=== PATIENT | female | born 1965 | race Two or more races ===

== ENCOUNTER 2021-10-27 19:30 | Observation (INO) | payer OTHER ==
[~2021-10-27] VITALS: Ht 162.6 cm; Wt 80.7 kg
--- NOTE | 2021-10-27 19:45 | NUR ---
[id number]. PALPITATION - RAPID AFIB NOTED NEW ONSET. PATIENT ALERT AND ORIENTED X3. AMBULATORY WTIH NON LABORED BREATHING IN BED 06 ON MONITOR AND POX AWAITING MD MCCOY.
--- NOTE | 2021-10-27 19:48 | NUR ---
covid swab done and sent to lab
--- NOTE | 2021-10-27 19:48 | NUR ---
blood collected and sent to lab
[2021-10-27] MEDS ORDERED: ASPIRIN 325 MG TABLET ONE (19:50)
[2021-10-27] MEDS ORDERED: DILTIAZEM HCL 25 MG IV ONE ×2 (19:51→21:35)
[2021-10-27] MEDS ORDERED: DILTIAZEM HCL 25 MG IV IV ONE (20:00)
[2021-10-27] MEDS ORDERED: IV NS 0.9% 1,000 ML IV ONE (20:00)
[2021-10-27] MEDS ORDERED: ASPIRIN 325 MG TABLET PO ONE (20:00)
[2021-10-27 20:08] LABS: CALCIUM, SERUM 8.9 mg/dL (8.5-10.1); CARBON DIOXIDE 26 mmol/L (21-32); CHLORIDE 106 mmol/L (98-107); CREATININE 0.7 mg/dL (0.6-1.3); GLUCOSE 100 mg/dL (74-106); POTASSIUM 3.2 mmol/L (3.5-5.1); SODIUM SERUM 139 mmol/L (136-145); UREA NITROGEN, BLOOD 24 mg/dL (7-18)
[2021-10-27 20:16] LABS: BASOPHILS % (AUTO) 0.4 % (0.0-2.0); EOSINOPHILS % (AUTO) 1.4 % (0.0-6.0); HEMATOCRIT 42 % (33-45); LYMPHOCYTES # (AUTO) 4.3 K/uL (0.8-4.8); LYMPHOCYTES % (AUTO) 37.3 % (20.0-44.0); MEAN CORPUSCULAR HGB CONC 34 g/dl (31.0-36.0); MEAN CORPUSCULAR VOLUME 89 fL (82-100); MONOCYTES # (AUTO) 0.9 K/uL (0.1-1.30); MONOCYTES % (AUTO) 7.8 % (2.0-12.0); NEUTROPHILS # (AUTO) 6.1 K/uL (1.8-8.9); NEUTROPHILS % (AUTO) 53.1 % (43.0-81.0); PLATELET COUNT (AUTO) 366 K/uL (150-450); RED BLOOD CELL COUNT(AUTO) 4.67 MIL/uL (4.0-5.2); WHITE BLOOD COUNT (AUTO) 11.5 K/uL (4.3-11.0)
[2021-10-27] MEDS ORDERED: DILTIAZEM HCL 50 MG IV IV ONE (22:00)
--- NOTE | 2021-10-27 22:32 | NUR ---
REPORT GIVEN TO DEJAN HUANG
--- NOTE | 2021-10-27 22:37 | NUR ---
GETTING TRANSFER TO 311 UNDER ACLS
--- NOTE | 2021-10-27 23:27 | NUR ---
SAW CLEANERPLANT OPERATIONS VICE PRESIDENT NOTE PATIENT CAME IN UNIT AT AROUND 2240 ACCOMPANIED BY 2 ER PERSONNEL, PATIENT IS AMBULATORY WITH STEADY GAIT. A/OX4. NO S/S OF APPARENT DISTRESS ON ROOM AIR. DENIES ANY PAIN AND DISCOMFORT AT THIS TIME. PATIENT HAS 2 IV ACCESS, L. AC #20 AND R. AC #20. AWAITING DOCTOR'S ORDERS. PATIENT IS JAPANESE SPEAKING ONLY AND [employer]vod BRADDISHER WAS USED TO GET ADMISSION PROCESS INFORMATIONS. BELONGINGS INVENTORIED AND SIGNED, PATIENT HAS MONEY ON HER, WITH 119 $1 BILLS, 1 $5, AND 5 $20 TOTAL OF $224, VERIFIED WITH PATIENT, BRADDISHER AND MAINSPRING WINDER. PATIENT HAS 1 YELLOW NECKLACE, AND 1 PAIR OF YELLOW EARRINGS. ALL WITH PATIENT. NEW ID BAND ON PATIENT. PATIENT WISHES TO BE FULL CODE AT THIS TIME. PER PATIENT SHE IS VACCINATED WITH MODERNA X2 WITH NO BOOSTER IN FILE. AND PER PATIENT SHE HAD HER FLU VACCINATION 3 MONTHS AGO. PATIENT ORIENTED BY THE USE OF CALL LIGHT AND THE UNIT. V/S FOLLOWS: 102/63, AND IS A-FIB ON TELE MONITOR @109 BPM. RR-18, T-98.7 AND SATURATION 99% ON ROOM AIR. NEEDS ATTENDED FOR NOW. SAFETY IN PLACE. WILL FOLLOW THROUGH DOCTOR'S ORDERS AND CARE PLAN.
[2021-10-27] MEDS ORDERED: POTASSIUM CHLORIDE 20 MEQ TAB.PRT.SR PO ONE (23:30)
[2021-10-27] MEDS ORDERED: ONDANSETRON HCL/PF 4 MG/2 ML VIAL IVP PRN (23:30)
[2021-10-27] MEDS ORDERED: IV NS 0.9% 1,000 ML IV PRN (23:30)
[2021-10-27] MEDS ORDERED: ACETAMINOPHEN 325 MG TABLET PO PRN (23:30)
[2021-10-27] MEDS ORDERED: MAG HYDROX/AL HYDROX/SIMETH 30 ML UDC PO PRN (23:30)
[2021-10-27] MEDS ORDERED: ENOXAPARIN SODIUM 40 MG/0.4 ML DISP.SYRIN SQ SCH (23:30)
[2021-10-27 23:40] VITALS: BP 102/63
[2021-10-28] VITALS: BP_SYST 107; BP_SYST 158; BP_DIAS 67; BP_DIAS 86
[2021-10-28 00:49] VITALS: BP 107/67
--- NOTE | 2021-10-28 01:37 | NUR ---
DIRECTOR LAW ENFORCEMENT NOTE CONVERTED TO SINUS RHYTHM @77 BPM AT THIS TIME.
[2021-10-28 04:00] VITALS: BP 90/50
--- NOTE | 2021-10-28 05:05 | NUR ---
FAST FOOD CREW LEAD NOTE- BP RE-CHECK 92/62 HR-70. PATIENT DENIES DIZZINESS, NOR PAIN/DISCOMFORT. WILL CONTINUE TO MONITOR.
[2021-10-28 06:30] LABS: BASOPHILS % (AUTO) 0.3 % (0.0-2.0); HEMATOCRIT 36 % (33-45); HEMOGLOBIN 12.3 g/dL (11.5-14.8); LYMPHOCYTES # (AUTO) 2.5 K/uL (0.8-4.8); LYMPHOCYTES % (AUTO) 38.4 % (20.0-44.0); MEAN CORPUSCULAR HGB CONC 34 g/dl (31.0-36.0); MEAN CORPUSCULAR VOLUME 89 fL (82-100); MONOCYTES # (AUTO) 0.6 K/uL (0.1-1.30); MONOCYTES % (AUTO) 8.8 % (2.0-12.0); NEUTROPHILS # (AUTO) 3.3 K/uL (1.8-8.9); NEUTROPHILS % (AUTO) 50.5 % (43.0-81.0); PLATELET COUNT (AUTO) 308 K/uL (150-450); RED BLOOD CELL COUNT(AUTO) 4.05 MIL/uL (4.0-5.2); WHITE BLOOD COUNT (AUTO) 6.5 K/uL (4.3-11.0)
--- NOTE | 2021-10-28 06:56 | NUR ---
LIVESTOCK LABORER CLOSING NOTE PATIENT IN BED, A/OX4. NO S/S OF APPARENT DISTRESS ON ROOM AIR. DENIES PAIN AT THIS TIME. TELE MONITOR READING SR 68 BPM AT THIS TIME. IV NS RUNNING @75 MLS/HR. NEEDS ATTENDED. ALL SCHEDULED MEDICATIONS ADMINISTERED. SAFETY KEPT THE WHOLE SHIFT. WILL ENDORSE TO MORNING SHIFT RN FOR CONTINUITY OF CARE.
[2021-10-28 07:37] LABS: CALCIUM, SERUM 8.4 mg/dL (8.5-10.1); CREATININE 0.6 mg/dL (0.6-1.3); MAGNESIUM 2.1 mg/dL (1.8-2.4); PHOSPHORUS 4.1 mg/dL (2.5-4.9); POTASSIUM 3.9 mmol/L (3.5-5.1)
--- NOTE | 2021-10-28 07:47 | NUR ---
RN OPENING NOTE PATIENT AWAKE IN BED RESTING, A/O X4. NO S/S OF PAIN NOTED AT THIS TIME. ON ROOM AIR, NO DISTRESS OR SHORTNESS OF BREATH NOTED. IV ACCESS LAC #18G, RAC #20G, INTACT, PATENT AND FLUSHING WELL. PATIENT WITH EXTERNAL LEATHER SORTER WITH CURRENT READING OF SR, NO CARDIAC DISTRESS NOTED. FALL AND SAFETY MEASURES IN PLACE, BED ALARM ON BED IN LOW AND LOCK POSITION, CALL LIGHT AND TABLE WITHIN EASY REACH, SIDE RAILS UP X2. WILL CONTINUE TO MONITOR.
[2021-10-28 08:00] VITALS: BP 105/63
[2021-10-28] MEDS ORDERED: METOPROLOL SUCCINATE 50 MG TAB.SR.24H PO SCH (09:00)
[2021-10-28] MEDS ORDERED: POTASSIUM CHLORIDE 20 MEQ TAB.PRT.SR PO ONE (09:00)
[2021-10-28] MEDS ORDERED: METO50TA7 PO (10:22)
[2021-10-28 12:00] VITALS: BP 134/64
--- NOTE | 2021-10-28 13:06 | NUR ---
REFINING EQUIPMENT OPERATOR NOTE PATIENT DISCHARGE IN STABLE MEDICAL CONDITION, A/O X4. V/S TAKEN, STABLE AND RECORDED. NO IV ACCESS. SKIN ASSESSMENT DONE, SKIN INTACT. NAME ARM BAND REMOVED. ALL BELONGINGS CHECKED AND SIGNED. HEALTH TEACHING AND DISCHARGE INSTRUCTIONS GIVEN AND VERBALIZED UNDERSTANDING. PATIENT LEFT UNIT AMBULATING WITH NO SIGNS OF DISTRESS, ACCOMPANIED BY BANK PRESIDENT TO THE LOBBY. CHARGE NURSE AWARE OF DISCHARGE.
== END 2021-10-28 14:00 | disposition home or self-care (01) ==
LOC: ER 19:32 → TELE 22:29
PROVIDERS: ADMIT Nurse Practitioner Acute Care
DX: I48.91 Unspecified atrial fibrillation (principal); E66.9 Obesity, unspecified; D68.59 Other primary thrombophilia; E87.6 Hypokalemia; Z20.822 Contact with and (suspected) exposure to COVID-19; Z68.30 Body mass index [BMI] 30.0-30.9, adult; Z88.5 Allergy status to narcotic agent; Z79.899 Other long term (current) drug therapy; D72.829 Elevated white blood cell count, unspecified; I10 Essential (primary) hypertension
CPT/HCPCS: 36415 ×2; 71045; 80048 ×2; 80061; 83036; 83735 ×2; 83880; 84100; 84443; 84484; 85025 ×2; 87081; 87426; 93005 ×3; 93307; C9803; G0378 ×16; J1650; J3490 ×2; J7030

== ENCOUNTER 2022-06-16 06:00 | Emergency (ER) | payer OTHER ==
[~2022-06-16] VITALS: Ht 167.6 cm; Wt 79.4 kg
[~2022-06-16 06:00] MED LIST: METO50TA7 PO
--- NOTE | 2022-06-16 06:14 | NUR ---
BIBSELF C/O PALPITAITONS, DIZZY, SEGURA FOR THE PAST 10 DAYS. PT A/OX4. TOLERATING R/A WELL WITH NO RESP DISTRESS. CONNECTED PT TO POX AND MONITOR. SAFETY MEASURES IN PLACE.
--- NOTE | 2022-06-16 06:30 | NUR ---
RAC #18G S/L BLOOD COLLECTED AND SENT TO LAB
--- NOTE | 2022-06-16 06:44 | NUR ---
DR. SANTIAGO PABON AT PT'S BEDSIDE FOR EVAL
--- NOTE | 2022-06-16 06:48 | NUR ---
EMT AT PT'S BEDSIDE FOR EKG
[2022-06-16] MEDS ORDERED: METOPROLOL TARTRATE 50 MG TABLET ONE (06:49)
[2022-06-16] MEDS ORDERED: METOPROLOL TARTRATE 25 MG TABLET PO ONE (07:00)
--- NOTE | 2022-06-16 07:02 | NUR ---
FINAL ASSEMBLER BOAT AT PT'S BEDSIDE
[2022-06-16 07:15] LABS: BASOPHILS % (AUTO) 0.4 % (0.0-2.0); EOSINOPHILS % (AUTO) 2.9 % (0.0-6.0); HEMATOCRIT 41 % (33-45); HEMOGLOBIN 13.7 g/dL (11.5-14.8); LYMPHOCYTES # (AUTO) 2.7 K/uL (0.8-4.8); LYMPHOCYTES % (AUTO) 37.2 % (20.0-44.0); MEAN CORPUSCULAR HGB CONC 33 g/dl (31.0-36.0); MEAN CORPUSCULAR VOLUME 89 fL (82-100); MONOCYTES # (AUTO) 0.6 K/uL (0.1-1.30); MONOCYTES % (AUTO) 8.2 % (2.0-12.0); NEUTROPHILS # (AUTO) 3.7 K/uL (1.8-8.9); NEUTROPHILS % (AUTO) 51.3 % (43.0-81.0); PLATELET COUNT (AUTO) 327 K/uL (150-450); RED BLOOD CELL COUNT(AUTO) 4.61 MIL/uL (4.0-5.2); WHITE BLOOD COUNT (AUTO) 7.3 K/uL (4.3-11.0)
[2022-06-16 07:24] LABS: CALCIUM, SERUM 9.2 mg/dL (8.5-10.1); CARBON DIOXIDE 25 mmol/L (21-32); CHLORIDE 105 mmol/L (98-107); CREATININE 0.7 mg/dL (0.6-1.3); GLUCOSE 101 mg/dL (74-106); POTASSIUM 3.7 mmol/L (3.5-5.1); SODIUM SERUM 139 mmol/L (136-145); UREA NITROGEN, BLOOD 19 mg/dL (7-18)
[2022-06-16 07:37] LABS: ALANINE AMINOTRANSFERASE 21 U/L (12-78); ALBUMIN 3.8 g/dL (3.4-5.0); ALKALINE PHOSPHATASE 83 U/L (46-116); ASPARTATE AMINOTRANSFERASE 20 U/L (15-37); BILIRUBIN,DIRECT 0.2 mg/dL (0.0-0.2); BILIRUBIN,TOTAL 0.8 mg/dL (0.2-1.0); TOTAL PROTEIN, SERUM 7.4 g/dL (6.4-8.2)
--- NOTE | 2022-06-16 08:16 | NUR ---
Patient discharged to home in stable condition. Written and verbal after care instructions given. Patient verbalizes understanding of instruction.
--- NOTE | 2022-06-16 08:16 | NUR ---
IV removed. Catheter intact and site benign. Pressure and 4x4 applied to site. No bleeding noted.
[2022-06-16 08:17] VITALS: BP 110/58
== END 2022-06-16 08:17 | disposition home or self-care (01) ==
LOC: ER 06:02
DX: R00.2 Palpitations (principal); Z98.890 Other specified postprocedural states; Z79.899 Other long term (current) drug therapy; Z88.5 Allergy status to narcotic agent
CPT/HCPCS: 36415; 71045-TC; 80048-TC; 80076-TC; 83880; 84484-TC; 85025-TC

== ENCOUNTER 2022-09-10 15:41 | Emergency (ER) | payer OTHER ==
[~2022-09-10] VITALS: Ht 165.1 cm; Wt 79.4 kg
--- NOTE | 2022-09-10 15:45 | NUR ---
pt in bed comfortable SP syncope episode
--- NOTE | 2022-09-10 16:00 | NUR ---
at bed side
[2022-09-10 16:21] LABS: BASOPHILS % (AUTO) 0.6 % (0.0-2.0); EOSINOPHILS % (AUTO) 1.7 % (0.0-6.0); HEMATOCRIT 37 % (33-45); HEMOGLOBIN 12.6 g/dL (11.5-14.8); LYMPHOCYTES # (AUTO) 2.4 K/uL (0.8-4.8); LYMPHOCYTES % (AUTO) 29.9 % (20.0-44.0); MEAN CORPUSCULAR HGB CONC 34 g/dl (31.0-36.0); MEAN CORPUSCULAR VOLUME 88 fL (82-100); MONOCYTES # (AUTO) 0.5 K/uL (0.1-1.30); MONOCYTES % (AUTO) 6.5 % (2.0-12.0); NEUTROPHILS % (AUTO) 61.3 % (43.0-81.0); PLATELET COUNT (AUTO) 380 K/uL (150-450); RED BLOOD CELL COUNT(AUTO) 4.26 MIL/uL (4.0-5.2); WHITE BLOOD COUNT (AUTO) 8.1 K/uL (4.3-11.0)
[2022-09-10 16:28] LABS: CALCIUM, SERUM 9.3 mg/dL (8.5-10.1); CARBON DIOXIDE 31 mmol/L (21-32); CHLORIDE 103 mmol/L (98-107); CREATININE 0.7 mg/dL (0.6-1.3); GLUCOSE 100 mg/dL (74-106); POTASSIUM 3.2 mmol/L (3.5-5.1); SODIUM SERUM 137 mmol/L (136-145); UREA NITROGEN, BLOOD 28 mg/dL (7-18)
[2022-09-10 16:45] LABS: ALANINE AMINOTRANSFERASE 25 U/L (12-78); ALKALINE PHOSPHATASE 83 U/L (46-116); ASPARTATE AMINOTRANSFERASE 21 U/L (15-37); BILIRUBIN,DIRECT 0.1 mg/dL (0.0-0.2); BILIRUBIN,TOTAL 0.3 mg/dL (0.2-1.0)
--- NOTE | 2022-09-10 17:57 | NUR ---
pt complaining of chest pain Repeat EKG started
--- NOTE | 2022-09-10 17:58 | NUR ---
notified of new CP
--- NOTE | 2022-09-10 18:15 | NUR ---
EKG results discussed with
[2022-09-10 18:16] VITALS: BP 142/66
--- NOTE | 2022-09-10 18:16 | NUR ---
Patient discharged to home in stable condition. Written and verbal after care instructions given. Patient verbalizes understanding of instruction.
== END 2022-09-10 18:17 | disposition home or self-care (01) ==
LOC: ER 16:00
DX: R42 Dizziness and giddiness (principal); Z88.8 Allergy status to other drugs, medicaments and biological substances
CPT/HCPCS: 36415; 71045-TC; 80048-TC; 80076-TC; 82962-TC; 83880; 84484-TC; 85025-TC